=== PATIENT | female | born 1985 | race Caucasian/White ===

== ENCOUNTER 2019-09-16 15:45 | Emergency (ER) | payer SELFPAY ==
[~2019-09-16] VITALS: Ht 165.1 cm; Wt 90.0 kg
[~2019-09-16 15:45] MED LIST: AMOXICILLIN875 MG OR; AUGMENTIN875TAB PO; DIFLUCAN150 MG PO; FIORICET PO; FLEXERIL PO; KEFLEX500 MG PO; LORTAB 7.57.5 MG PO; NAPROSYN500 MG PO; NO HOME MEDS; PAROXETINE10 MG PO; POLYTRIM OU; TOBRAMYCIN0.3 % OD
[2019-09-16 16:48] VITALS: BP 132/76
== END 2019-09-16 16:59 | disposition home or self-care (01) | DRG 556 ==
LOC: ED 15:45
DX: M25.572 Pain in left ankle and joints of left foot (principal); F17.200 Nicotine dependence, unspecified, uncomplicated; X50.0XXA Overexertion from strenuous movement or load, initial encounter; Y93.89 Activity, other specified

== ENCOUNTER → 2021-12-27 13:52 | Emergency (ER) | payer SELFPAY | END | disposition left against medical advice (07) | DRG 951 | LOC: LWOBS 13:52 → ED 13:52 | DX: Z53.21 Procedure and treatment not carried out due to patient leaving prior to being seen by health care provider (principal) ==